=== PATIENT | male | born 1960 | race Two or more races ===

== ENCOUNTER 2020-11-23 16:17 | Emergency (ER) | payer SELFPAY ==
[~2020-11-23] VITALS: Ht 162.6 cm; Wt 54.5 kg
[2020-11-23 16:24] VITALS: BP 130/69
== END 2020-11-23 16:33 | disposition left against medical advice (07) ==
LOC: EMS 16:22
DX: R06.02 Shortness of breath (principal); Z53.21 Procedure and treatment not carried out due to patient leaving prior to being seen by health care provider

== ENCOUNTER 2020-12-31 19:47 | Emergency (ER) | payer SELFPAY | END 2020-12-31 20:15 | disposition left against medical advice (07) | LOC: EMS 19:50 | DX: A05.9 Bacterial foodborne intoxication, unspecified (principal); Z53.21 Procedure and treatment not carried out due to patient leaving prior to being seen by health care provider ==

== ENCOUNTER 2021-01-20 15:54 | Emergency (ER) | payer MEDICAID ==
[~2021-01-20] VITALS: Ht 154.9 cm; Wt 47.7 kg
[2021-01-20] MEDS ORDERED: ALBUTEROL SULFATE HFA 90 MCG/PUFF 8 GM INHALER IH ONE (16:15)
[2021-01-20 16:32] LABS: APPEARANCE,URINE CLOUDY (CLEAR); BILIRUBIN,URINE NEGATIVE (NEGATIVE); GLUCOSE, URINE (UA) NEGATIVE (NEGATIVE); KETONES,URINE NEGATIVE (NEGATIVE); LEUKOCYTE ESTERASE ,URINE NEGATIVE (NEGATIVE); NITRATE,URINE NEGATIVE (NEGATIVE); OCCULT BLOOD,URINE NEGATIVE (NEGATIVE); PH,URINE 6.5 (5.0-8.0); PROTEIN,URINE NEGATIVE (NEGATIVE); UROBILINOGEN,URINE 0.2 mg/dL (<=1.0)
[2021-01-20 16:49] LABS: AMORPHOUS SEDIMENT,UR Few /LPF (None Seen); BACTERIA,URINE None Seen /HPF (None Seen); RBC,URINE None Seen /HPF (0-2); WBC,URINE None Seen /HPF (0-5)
[2021-01-20 17:48] VITALS: BP 139/72
== END 2021-01-20 17:49 | disposition home or self-care (01) ==
LOC: EMS 15:54
DX: J44.9 Chronic obstructive pulmonary disease, unspecified (principal); I10 Essential (primary) hypertension
CPT/HCPCS: 81001; 94640; 99283; J3535

== ENCOUNTER 2021-05-13 15:24 | Emergency (ER) | payer MEDICAID | END 2021-05-13 16:00 | disposition left against medical advice (07) | LOC: EMS 15:28 | DX: R06.02 Shortness of breath (principal); Z53.21 Procedure and treatment not carried out due to patient leaving prior to being seen by health care provider ==